=== PATIENT | male | born 1940 | race Caucasian/White ===

== ENCOUNTER → 2018-11-21 | Outpatient (CLI) | payer OTHER | END | disposition home or self-care (01) | LOC: RAH 14:10 | PROVIDERS: ATTEND Internal Medicine Cardiovascular Disease | DX: I25.10 Atherosclerotic heart disease of native coronary artery without angina pectoris (principal) | CPT/HCPCS: 78452; 93017; A9500 ×2 ==

== ENCOUNTER → 2024-01-31 | Outpatient (CLI) | payer MEDICARE | END | disposition home or self-care (01) | LOC: SHCH 07:44 | PROVIDERS: ATTEND Internal Medicine Cardiovascular Disease | DX: N28.1 Cyst of kidney, acquired (principal); I70.1 Atherosclerosis of renal artery; I10 Essential (primary) hypertension | CPT/HCPCS: 93975 ==